=== PATIENT | female | born 1960 | race Caucasian/White ===

== ENCOUNTER 2024-02-23 22:49 | Inpatient (IN) | payer OTHER ==
[~2024-02-23] VITALS: Ht 170.2 cm; Wt 73.0 kg
[2024-02-23 23:14] VITALS: BP_SYST 134; PULSE 77; RESP 20; TEMP 98.1; O2SAT 98
[2024-02-24] VITALS (8 sets, daily range): BP systolic 92–134; PULSE 62–78; RESP 14–17; TEMP 97.7–99.1; O2SAT 90–96
[2024-02-24 00:03] LABS: BASOPHILS # (AUTO) 0.1 K/uL (0.0-0.2); BASOPHILS % (AUTO) 0.8 % (0.0-2.0); EOSINOPHILS # (AUTO) 0.4 K/uL (0.0-0.4); EOSINOPHILS % (AUTO) 4.5 % (0.0-4.0); HEMATOCRIT 35.6 % (36-48); HEMOGLOBIN 12.2 g/dL (12.0-16.0); LYMPHOCYTES # (AUTO) 2.8 K/uL (1.0-5.5); LYMPHOCYTES % (AUTO) 31.1 % (20.5-51.5); MEAN CORPUSCULAR HEMOGLOBIN 31 pg (27-31); MEAN CORPUSCULAR HGB CONC 34 % (32-36); MEAN CORPUSCULAR VOLUME 90 fL (79.0-98.0); MONOCYTES # (AUTO) 0.7 K/uL (0.0-1.0); MONOCYTES % (AUTO) 8.1 % (1.7-9.3); NEUTROPHILS # (AUTO) 4.9 K/uL (1.8-7.7); NEUTROPHILS % (AUTO) 55.5 % (40.0-70.0); PLATELET COUNT (AUTO) 309 K/uL (130-430); RED BLOOD CELL COUNT(AUTO) 3.97 MIL/uL (4.2-6.2); RED CELL DISTRIBUTION WIDTH 15.9 % (9.0-15.0); WHITE BLOOD COUNT (AUTO) 8.9 K/uL (4.8-10.8)
[2024-02-24 00:20] LABS: BILIRUBIN,URINE 2+ (NEGATIVE); BLOOD, URINE NEGATIVE (NEGATIVE); CLARITY/URINE CLEAR (CLEAR); COLOR,URINE YELLOW (YELLOW); GLUCOSE,URINE NEGATIVE (NEGATIVE); KETONES,URINE NEGATIVE (NEGATIVE); LEUKOCYTE ESTERASE ,URINE NEGATIVE (NEGATIVE); NITRITE, URINE NEGATIVE (NEGATIVE); PROTEIN URINE NEGATIVE (NEGATIVE)
[2024-02-24 00:27] LABS: ALANINE AMINOTRANSFERASE 17 U/L (12-78); ALBUMIN 3.6 g/dL (3.4-4.8); ANION GAP 6 (5-15); ASPARTATE AMINOTRANSFERASE 11 U/L (10-37); CALCIUM 9.2 mg/dL (8.4-11.0); CARBON DIOXIDE 29 mmol/L (23-29); CHLORIDE 105 mmol/L (98-107); CREATININE 0.76 mg/dL (0.55-1.30); GFR AFRICAN AMERICAN 98 mL/min (>90); GLUCOSE 84 mg/dL (74-106); POTASSIUM 3.6 mmol/L (3.5-5.1); SODIUM SERUM 140 mmol/L (136-145); TOTAL BILIRUBIN 0.3 mg/dL (0.0-1.0); TOTAL PROTEIN, SERUM 7.1 g/dL (6.4-8.3); UREA NITROGEN, BLOOD 21 mg/dL (8-21)
[2024-02-24 00:30] LABS: BILIRUBIN,DIRECT 0.1 mg/dL (0.0-0.3)
[2024-02-24 01:09] LABS: GFR NON AFRICAN-AMERICAN 81 mL/min (>90)
[2024-02-24] MEDS ORDERED: ACETAMINOPHEN 325 MG TABLET PO PRN (01:45)
[2024-02-24] MEDS ORDERED: TEMAZEPAM 7.5 MG CAPSULE PO PRN (01:45)
[2024-02-24] MEDS ORDERED: TRAZ-251 PO (02:27)
[2024-02-24] MEDS ORDERED: OMEP40CA20 PO (02:27)
[2024-02-24] MEDS ORDERED: FLUO-408 PO (02:27)
[2024-02-24] MEDS ORDERED: CETI-355 PO (02:27)
[2024-02-24] MEDS ORDERED: ZOLP-189 PO (02:27)
[2024-02-24] MEDS ORDERED: QUET300T20 PO (02:27)
[2024-02-24] MEDS ORDERED: ZOLP10TA2 PO (02:27)
[2024-02-24] MEDS: D5NS 1,000 ML IV SCH (02:38)
[2024-02-24] MEDS: cefTRIAXone 1 GM in D5W 50 ML IV SCH (08:54)
[2024-02-24] MEDS ORDERED: cefTRIAXone 1 GM in D5W 50 ML IV SCH (09:00)
[2024-02-24] MEDS ORDERED: ZOLPIDEM TARTRATE 10 MG PO SCH (14:15)
[2024-02-24] MEDS: QUEtiapine FUMARATE 100 MG TABLET PO SCH (17:36)
[2024-02-24] MEDS: traZODone HCL 50 MG TABLET (DESYREL) PO SCH (21:17)
[2024-02-24] MEDS: ENOXAPARIN SODIUM 40 MG/0.4 ML SYRINGE SUBCUT SCH (21:17)
[2024-02-25] VITALS (7 sets, daily range): BP systolic 97–113; PULSE 63–100; RESP 13–18; TEMP 97.1–98.5; O2SAT 93–96
[2024-02-25] MEDS: FLUoxetine HCL 20 MG CAPSULE (PROzac) PO SCH (08:59)
[2024-02-25] MEDS: LORATADINE 10 MG TABLET PO SCH (08:59)
[2024-02-25] MEDS: PANTOPRAZOLE SODIUM 40 MG TAB PO SCH (08:59)
[2024-02-25] MEDS: ZOLPIDEM TARTRATE 5 MG TABLET PO PRN (18:03)
[2024-02-26] VITALS (7 sets, daily range): BP systolic 90–107; PULSE 62–85; RESP 16–17; TEMP 96.1–98.7; O2SAT 92–100
[2024-02-27] VITALS (7 sets, daily range): BP systolic 98–111; PULSE 62–80; RESP 15–17; TEMP 97.1–98.2; O2SAT 92–97
[2024-02-27 08:28] LABS: BASOPHILS # (AUTO) 0.1 K/uL (0.0-0.2); BASOPHILS % (AUTO) 0.8 % (0.0-2.0); CALCIUM 8.9 mg/dL (8.4-11.0); CREATININE 0.69 mg/dL (0.55-1.30); EOSINOPHILS # (AUTO) 0.4 K/uL (0.0-0.4); EOSINOPHILS % (AUTO) 6.6 % (0.0-4.0); HEMATOCRIT 37.1 % (36-48); HEMOGLOBIN 12.3 g/dL (12.0-16.0); LYMPHOCYTES # (AUTO) 2.1 K/uL (1.0-5.5); LYMPHOCYTES % (AUTO) 32.9 % (20.5-51.5); MEAN CORPUSCULAR HEMOGLOBIN 30 pg (27-31); MEAN CORPUSCULAR HGB CONC 33 % (32-36); MEAN CORPUSCULAR VOLUME 90 fL (79.0-98.0); MONOCYTES # (AUTO) 0.4 K/uL (0.0-1.0); MONOCYTES % (AUTO) 6.9 % (1.7-9.3); NEUTROPHILS # (AUTO) 3.4 K/uL (1.8-7.7); NEUTROPHILS % (AUTO) 52.8 % (40.0-70.0); PLATELET COUNT (AUTO) 294 K/uL (130-430); POTASSIUM 4.2 mmol/L (3.5-5.1); RED BLOOD CELL COUNT(AUTO) 4.11 MIL/uL (4.2-6.2); RED CELL DISTRIBUTION WIDTH 15.7 % (9.0-15.0); WHITE BLOOD COUNT (AUTO) 6.4 K/uL (4.8-10.8)
== END 2024-02-27 19:16 | DRG 640 ==
LOC: SED 22:49 → SMU 02-24 01:39
PROVIDERS: ADMIT Family Medicine; ATTEND Family Medicine
DX: E86.0 Dehydration (principal); G93.41 Metabolic encephalopathy; N39.0 Urinary tract infection, site not specified; F32.A Depression, unspecified; Z79.899 Other long term (current) drug therapy; R62.7 Adult failure to thrive; Z68.25 Body mass index [BMI] 25.0-25.9, adult; R29.6 Repeated falls
CPT/HCPCS: 36415; 80048; 80076; 81001; 81003; 83880; 84484; 85025; 92610-GN; 97110-GP; 97112-GP; 97116-GP; 97530-GP; 99285; J0696; J1650; J7060